=== PATIENT | female | born 1995 | race Two or more races ===

== ENCOUNTER 2022-12-10 14:53 | Emergency (ER) | payer OTHER ==
[~2022-12-10] VITALS: Ht 152.4 cm; Wt 73.5 kg
[~2022-12-10 14:53] MED LIST: COLACE100 MG PO; PRENATAL 19 TAB1 TAB PO
== END 2022-12-10 19:03 | disposition home or self-care (01) ==
LOC: ER 14:53
PROVIDERS: General Practice
DX: A09 Infectious gastroenteritis and colitis, unspecified (principal); Z20.822 Contact with and (suspected) exposure to COVID-19